=== PATIENT | female | born 1985 | race Asian ===

== ENCOUNTER 2023-04-16 23:33 | Emergency (ER) | payer OTHER ==
[~2023-04-16] VITALS: Ht 152.4 cm; Wt 47.2 kg
[2023-04-17] MEDS ORDERED: ACETAMINOPHEN ES 500 MG TABLET ONE (00:15)
[2023-04-17] MEDS ORDERED: CYCLOBENZAPRINE HCL 10 MG TABLET ONE (00:15)
[2023-04-17] MEDS: CYCLOBENZAPRINE HCL 10 MG TABLET PO ONE (00:17)
[2023-04-17] MEDS: ACETAMINOPHEN ES 500 MG TABLET PO ONE (00:17)
[2023-04-17] MEDS ORDERED: IBUP-1957 PO (00:36)
[2023-04-17] MEDS ORDERED: CYCL10TA9 PO (00:36)
[2023-04-17 00:46] VITALS: BP 111/78; O2SAT 99
== END 2023-04-17 00:50 | disposition home or self-care (01) ==
LOC: ER 23:40
DX: S63.591A Other specified sprain of right wrist, initial encounter (principal); S16.1XXA Strain of muscle, fascia and tendon at neck level, initial encounter; S80.02XA Contusion of left knee, initial encounter; S20.212A Contusion of left front wall of thorax, initial encounter; Z79.899 Other long term (current) drug therapy; V89.2XXA Person injured in unspecified motor-vehicle accident, traffic, initial encounter; Y93.89 Activity, other specified; Y92.89 Other specified places as the place of occurrence of the external cause; Y99.8 Other external cause status
CPT/HCPCS: 71045; 73110; 93005; A4606; A4663; A9150